=== PATIENT | female | born 2000 | race Two or more races ===

== ENCOUNTER 2022-01-02 08:20 | Inpatient (IN) ==
[2022-01-02] MEDS ORDERED: OXYTOCIN 30 UNITS/500 ML BAG IV PRN (08:27)
[2022-01-02] MEDS ORDERED: LIDOCAINE 1% LOCAL 20 ML VIAL INFIL PRN (08:27)
[2022-01-02] MEDS ORDERED: DINOPROSTONE 10 MG INSERT PV ONE (08:45)
[2022-01-02 09:09] LABS: Hematocrit (blood only) 34.3 % (34.1-44.9); Hemoglobin 11.2 g/dl (12.0-16.0); Mean Corpuscular Hemoglobin 28.6 pg (25.0-34.0); Mean Corpuscular Hgb Conc 32.7 g/dL (32.0-36.0); Mean Corpuscular Volume 87.7 fL (80.0-100.0); Mean Platelet Volume 10.2 fL (9.4-12.3); Platelet Count 305 K/uL (130-400); RDW Coefficient of Variation 12.8 % (11.5-14.5); RDW Standard Deviation 40.7 fL (36.4-46.3); Red Blood Count 3.91 M/uL (3.93-5.22); White Blood Count 6.16 K/ul (4.8-10.8)
--- NOTE | 2022-01-02 09:09 | History & Physical Report ---
Date of Service January 02, 2022 Assessment & Plan (1) Post-term , 40-42 weeks of gestation: Plan: Patient is a 21-year-old at 41 weeks and 3 days of gestation presenting today for induction of labor for postdates, Vital signs stable afebrile, heart rate reassuring, GBS negative, Cervix unfavorable, Plan to admit, monitor, labs, cervical ripening with Cervidil Understands all, what to expect from induction,labor All questions were answered. Admission and Anticipated Discharge Date Admission Date: January 02, 2022 History of Present Illness Primary Care Provider: NO PCP Patient is a 21-year-old at 41 weeks and 3 days of gestation who was scheduled for induction of labor for postdates. She is a transfer care in third trimester, from [facility], does not speak Syriac. Her has been doing translation for her. They took care in [facility] and then came to [facility] and then here, [place], in October No US found in her records other than normal FORREST and BPP, they were told to be all normal per patient and . Patient denies contractions, leakage of fluid, vaginal bleeding. She reports good movements. Her has been uncomplicated, GBS negative. Review of Systems as per Subjective / HPI Physical Exam Constitutional: well developed, well nourished and comfortable Pleasant Gastrointestinal (Abdomen): normal bowel sounds, soft, nontender, no hepatosplenomegaly (gravid) Genitourinary: normal external appearance OB Exam Abdomen: + vertex Manual OB Exam: + cervical dilation fingertip, + cervical effacement 30% and + station high OB Exam Monitor Tracing: + external uterine monitor used and + category I Bed side US: Vertex Results & Data ([facility]) Vital Signs (Past 12 Hours) Vital Signs Pulse BP 01/02/22 08:55 86 123/79 Laboratory Results Lab Results 01/02/22 Range/Units 08:48 WBC 6.16 (4.8-10.8) K/ul RBC 3.91 L (3.93-5.22) M/uL Hgb 11.2 L (12.0-16.0) g/dl Hct 34.3 (34.1-44.9) % MCV 87.7 (80.0-100.0) fL MCH 28.6 (25.0-34.0) pg MCHC 32.7 (32.0-36.0) g/dL RDW Std Deviation 40.7 (36.4-46.3) fL RDW Coeff of Sivakumar 12.8 (11.5-14.5) % Plt Count 305 (130-400) K/uL MPV 10.2 (9.4-12.3) fL
[2022-01-02] MEDS ORDERED: BUTORPHANOL TARTRATE 1 MG/ML VIAL IV PRN (09:50)
--- NOTE | 2022-01-02 16:31 | Obstetrical Progress Note ---
Date of Service January 02, 2022 Assessment & Plan Admission and Anticipated Discharge Date Admission Date: January 02, 2022 Subjective Patient is related. She feels well no complaints. She denies contractions, leakage of fluid, vaginal bleeding. She reports good movements. heart rate category 1, [place] showing regular contractions every 3 to 5 minutes. Continue with cervical ripening and monitoring, All questions were answered. Results & Data ([facility]) Vital Signs (Past 12 Hours) Vital Signs Temp Pulse Resp BP Pulse Ox 01/02/22 08:57 37.0 C 20 01/02/22 16:13 97 01/02/22 16:13 98 H 01/02/22 16:08 95 01/02/22 16:08 90 01/02/22 16:03 96 01/02/22 16:03 87 01/02/22 15:58 98 01/02/22 15:58 88 01/02/22 15:53 97 01/02/22 15:53 91 H 01/02/22 15:48 97 01/02/22 15:48 101 H 01/02/22 15:43 97 01/02/22 15:43 87 01/02/22 15:38 97 01/02/22 15:38 91 H 01/02/22 15:33 97 01/02/22 15:33 92 H 01/02/22 15:28 97 01/02/22 15:28 89 01/02/22 15:23 97 01/02/22 15:23 90 01/02/22 15:18 97 01/02/22 15:18 93 H 01/02/22 15:13 97 01/02/22 15:13 82 01/02/22 08:55 86 123/79
--- NOTE | 2022-01-02 21:56 | Obstetrical Progress Note ---
Date of Service January 02, 2022 Assessment & Plan Admission and Anticipated Discharge Date Admission Date: January 02, 2022 Subjective Patient is seen and examined. She feels mild irregular cramps, not painful. She denies contractions, leakage of fluid, vaginal bleeding. She reports good movements. Cervidil is removed, cervix is 1 to 2 cm, 30%, -3, posterior. She is very uncomfortable during exam. heart rate category 1 Contractions every 2 to 5 minutes, patient does not feel them all. We discussed the next option as oral Cytotec versus [place] balloon mechanical dilatation with IV oxytocin at same time. After long discussion she decided to take oral Cytotec just because she has hard time tolerating vaginal exams. Continue to monitor closely, Stadol for pain as needed, All questions were answered. Results & Data ([facility]) Vital Signs (Past 12 Hours) Vital Signs Temp Pulse Resp BP Pulse Ox 01/02/22 19:23 37.1 C 18 01/02/22 20:36 96 H 01/02/22 20:36 117/66 01/02/22 16:13 97 01/02/22 16:13 98 H 01/02/22 16:08 95 01/02/22 16:08 90 01/02/22 16:03 96 01/02/22 16:03 87 01/02/22 15:58 98 01/02/22 15:58 88 01/02/22 15:53 97 01/02/22 15:53 91 H 01/02/22 15:48 97 01/02/22 15:48 101 H 01/02/22 15:43 97 01/02/22 15:43 87 01/02/22 15:38 97 01/02/22 15:38 91 H 01/02/22 15:33 97 01/02/22 15:33 92 H 01/02/22 15:28 97 01/02/22 15:28 89 01/02/22 15:23 97 01/02/22 15:23 90 01/02/22 15:18 97 01/02/22 15:18 93 H 01/02/22 15:13 97 01/02/22 15:13 82
[2022-01-02] MEDS: LACTATED RINGER'S 1,000 ML IV PRN (22:00)
[2022-01-02] MEDS ORDERED: miSOPROStoL 50 MCG TAB ONE (22:34)
[2022-01-03] MEDS ORDERED: ONDANSETRON INJ 2 MG/ML 2 ML VIAL IV PRN ×2 (00:52→13:42)
[2022-01-03] MEDS ORDERED: miSOPROStoL 50 MCG TAB ONE (03:23)
--- NOTE | 2022-01-03 07:03 | Obstetrical Progress Note ---
Date of Service January 03, 2022 Assessment & Plan Admission and Anticipated Discharge Date Admission Date: January 02, 2022 Subjective Patient received 2 doses of Cytotec and slept through contractions. Just fekt a gush if fluid leaking. Pad is covered with green fluid, meconium+, Nitrazine + VE; cx 1-2 cm/ 30%/ -3 FHR categ I [place]: ctxs q2-3 earlier now spaced out Plan to start Oxytocin Continue to monitor Results & Data ([facility]) Vital Signs (Past 12 Hours) Vital Signs Temp Pulse Resp BP 01/02/22 19:23 37.1 C 18 01/03/22 06:59 18 01/03/22 06:59 37.0 C 18 01/03/22 03:26 18 01/03/22 03:26 18 01/03/22 03:25 125 H 119/60 01/02/22 20:36 96 H 01/02/22 20:36 117/66
[2022-01-03] MEDS ORDERED: OXYTOCIN 30 UNITS/500 ML BAG IV PRN ×3 (07:08→16:27)
[2022-01-03] MEDS: LACTATED RINGER'S 1,000 ML IV PRN ×3 (10:39→20:59)
[2022-01-03] MEDS ORDERED: NALOXONE HCL 1 MG in SODIUM CHLORIDE 0.9% 1000ML 1,000 ML IV PRN (13:42)
[2022-01-03] MEDS ORDERED: NALBUPHINE HCL INJ 10 MG/ML AMP IV PRN (13:42)
[2022-01-03] MEDS ORDERED: diphenhydrAMINE 50 MG/ML VIAL IV PRN (13:42)
[2022-01-03] MEDS ORDERED: NALOXONE HCL 0.4 MG/1 ML VIAL/CARP IV PRN (13:42)
[2022-01-03] MEDS ORDERED: ePHEDrine sulfate 50 MG/ML AMP IV PRN (13:42)
[2022-01-03] MEDS ORDERED: ePHEDrine sulfate 50 MG/ML AMP ONE (13:47)
[2022-01-03] MEDS ORDERED: LIDOCAINE 2%/EPINEPHRINE 1:200,000 20 ML SDV ONE (13:47)
[2022-01-03] MEDS ORDERED: SODIUM CHLORIDE 0.9% INJ 10 ML VIAL ONE (13:47)
[2022-01-03] MEDS ORDERED: BUPIVACAINE 0.25% 30 ML VIAL ONE (13:47)
[2022-01-03] MEDS ORDERED: fentaNYL citrate 100 MCG/2 ML VIAL ONE (13:47)
[2022-01-03] MEDS ORDERED: fentaNYL 2MCG/ML ROPIVACAINE 1.25MG/ML 100 ML BAG EPI ONE (13:48)
--- NOTE | 2022-01-03 13:48 | Anesthesiology Consultation ---
Date of Service January 03, 2022 Assessment & Plan Chart Review Chart Review: Patient NOT seen in Pre Admission Testing and Acceptable Risk for Labor Epidural Consults Requested none ASA ASA2 Proposed Anesthesia Anesthesia Type: Labor Epidural and CSE Risk / Benefits Reviewed With: PT / POA / Parent / Guardian, Accepts Plan and Informed Consent Obtained History Height/Weight Height: 5 ft 4 in Weight: 80.9 kg Allergies Allergy/AdvReac Type Severity Reaction Status Date / Time No Known Allergies Allergy Unverified 01/02/22 15:37 Medications Active Medications Generic Name Dose Route Start Last Admin Trade Name Freq PRN Reason Stop Dose Admin Butorphanol Tartrate 1 mg 01/02/22 09:50 01/03/22 10:34 Butorphanol Tartrate 1 Mg/Ml Vial IV 02/01/22 09:49 1 mg Q3HWA PRN Administration Pain Lactated Ringer's 1,000 mls @ 150 mls/hr 01/02/22 08:27 01/03/22 13:32 Lr IV 01/04/22 08:26 999 mls/hr .Q6H40M PRN Infusion L&D Protocol Protocol Oxytocin 30 units in 500 mls @ 18 mls/hr 01/03/22 07:08 01/03/22 12:40 Pitocin IV 01/05/22 07:07 1.08 units/hr .Q24H PRN 18 mls/hr Labor Induction/Augmentation Titration Protocol 1.08 UNITS/HR NPO Date Last Intake of Fluids: 01/03/22 Time Last Intake of Fluids: 13:00 Date Last Intake of Solids: 01/03/22 Time Last Intake of Solids: 12:30 Exercise / Class Metabolic Activity II 4-5 Yardwork/Stairs/Walk up hill Past Anesthesia History No Hx of Anesthesia Complications and No Family Hx of Anesthesia Complications History of PONV No Hx of PONV and No Hx of Motion Sickness Social History Smoking Status: Never smoker Hx Alcohol Use: No Hx Substance Use: No substance use type: does not use Review of Systems no chest pain or sob Physical Exam Vital Signs Last Vital Signs Temp 36.9 C 01/03/22 11:03 Pulse 80 01/03/22 12:47 Resp 18 01/03/22 11:03 BP 117/77 01/03/22 12:47 Pulse Ox 97 01/02/22 16:13 ENMT Mouth: no TMJ abnormality Thyromental Distance: > or= 3.5 Finger Breadths Mallampati Class: II Neck normal visual inspection Respiratory normal respiratory effort Auscultation: lungs clear to auscultation bilaterally Cardiovascular Rate/Rhythm: regular rate and regular rhythm Musculoskeletal Spine: normal cervical ROM Neurologic moves all extremities Psychiatric Orientation: alert and oriented x 3 Testing Laboratory Results 01/02/22 08:48
[2022-01-03] MEDS: fentaNYL 2MCG/ML ROPIVACAINE 1.25MG/ML 100 ML BAG EPI PRN ×2 (14:11→22:17)
[2022-01-03] MEDS: ACETAMINOPHEN 325 MG TAB PO PRN ×2 (18:47→23:20)
--- NOTE | 2022-01-03 19:37 | Labor Progress Brief Note ---
Date of Service January 03, 2022 Assessment & Plan Admission and Anticipated Discharge Date Admission Date: January 02, 2022 Physical Exam Genitourinary: Manual OB Exam: + cervical dilation 4 cm and 5 cm, + cervical effacement 90%, + station -2 and + amniotic fluid meconium OB Exam Monitor Tracing: + external FHT monitor used, + external uterine monitor used and + category I Results & Data ([facility]) Vital Signs (Past 12 Hours) Vital Signs Temp Pulse Resp BP Pulse Ox 01/03/22 19:31 88 99 01/03/22 19:26 86 98 01/03/22 19:21 97 H 98 01/03/22 19:22 91 H 112/64 01/03/22 19:16 94 H 98 01/03/22 19:11 92 H 98 01/03/22 19:08 98 H 116/60 01/03/22 19:06 103 H 98 01/03/22 19:01 101 H 99 01/03/22 18:56 85 100 01/03/22 18:53 93 H 115/72 01/03/22 18:51 87 98 01/03/22 18:46 91 H 97 01/03/22 18:41 112 H 98 01/03/22 18:37 87 106/55 L 01/03/22 18:36 91 H 99 01/03/22 18:31 85 98 01/03/22 18:26 94 H 98 01/03/22 18:21 93 H 99 01/03/22 18:22 96 H 102/57 L 01/03/22 18:16 85 97 01/03/22 18:11 84 98 01/03/22 18:08 73 107/56 L 01/03/22 18:06 86 97 01/03/22 18:01 96 H 97 01/03/22 17:56 85 98 01/03/22 17:51 102 H 98 01/03/22 17:52 93 H 107/61 01/03/22 17:46 86 98 01/03/22 17:41 94 H 96 01/03/22 17:37 78 107/62 01/03/22 17:36 37.0 C 87 15 98 01/03/22 17:31 85 98 01/03/22 17:26 88 97 01/03/22 17:21 81 96 01/03/22 17:22 83 110/61 01/03/22 17:16 75 96 01/03/22 17:11 79 95 01/03/22 17:06 85 96 01/03/22 17:07 85 106/59 L 01/03/22 17:01 93 H 96 01/03/22 16:56 80 95 01/03/22 16:52 86 105/56 L 01/03/22 16:51 80 97 01/03/22 16:46 94 01/03/22 16:46 85 01/03/22 16:46 86 93 01/03/22 16:41 81 97 01/03/22 16:37 75 120/70 01/03/22 16:36 77 98 01/03/22 16:31 78 98 01/03/22 16:29 15 01/03/22 16:29 37.3 C 15 01/03/22 16:26 76 96 01/03/22 16:22 74 107/55 L 01/03/22 16:21 73 96 01/03/22 16:16 80 97 01/03/22 16:11 89 97 01/03/22 16:08 71 103/56 L 01/03/22 16:06 117 H 98 01/03/22 16:01 88 97 01/03/22 15:56 82 97 01/03/22 15:51 88 97 01/03/22 15:50 83 109/58 L 01/03/22 15:46 77 95 01/03/22 15:45 70 113/56 L 01/03/22 15:41 95 01/03/22 15:41 78 01/03/22 15:41 71 106/57 L 01/03/22 15:36 73 108/54 L 95 01/03/22 15:33 72 94 01/03/22 15:31 95 01/03/22 15:31 73 01/03/22 15:31 75 108/56 L 01/03/22 15:26 95 01/03/22 15:26 77 01/03/22 15:26 73 94 01/03/22 15:25 68 110/57 L 01/03/22 15:21 71 106/58 L 94 01/03/22 15:20 72 94 01/03/22 15:16 94 01/03/22 15:16 80 01/03/22 15:16 73 108/54 L 01/03/22 15:14 73 94 01/03/22 15:11 75 94 01/03/22 15:10 74 102/58 L 01/03/22 15:06 77 94 01/03/22 15:07 80 94 01/03/22 15:05 77 103/56 L 01/03/22 15:01 85 106/58 L 94 01/03/22 14:59 71 94 01/03/22 14:56 76 93 01/03/22 14:55 75 15 105/57 L 01/03/22 14:53 73 94 01/03/22 14:51 79 106/58 L 95 01/03/22 14:48 76 94 01/03/22 14:46 72 95 01/03/22 14:45 76 108/60 01/03/22 14:43 77 94 01/03/22 14:41 73 95 01/03/22 14:40 75 111/62 01/03/22 14:36 84 96 01/03/22 14:35 82 106/56 L 01/03/22 14:31 77 95 01/03/22 14:29 78 105/58 L 01/03/22 14:27 94 H 110/59 L 01/03/22 14:26 84 96 01/03/22 14:25 77 109/58 L 01/03/22 14:23 71 116/64 01/03/22 14:21 80 116/57 L 96 01/03/22 14:20 14 01/03/22 14:20 36.9 C 14 01/03/22 14:19 83 107/57 L 01/03/22 14:17 89 120/74 01/03/22 14:16 83 97 01/03/22 14:15 76 120/64 01/03/22 14:13 79 119/58 L 01/03/22 14:11 77 113/58 L 97 01/03/22 14:10 83 127/62 01/03/22 14:06 82 98 01/03/22 14:01 74 100 01/03/22 13:56 89 100 01/03/22 13:48 75 128/75 01/03/22 12:47 80 117/77 01/03/22 11:47 67 115/62 01/03/22 11:03 36.9 C 74 18 113/61 01/03/22 09:48 69 111/62 01/03/22 08:59 20 01/03/22 08:59 36.8 C 20 01/03/22 07:47 83 121/69 01/03/22 07:45 90 120/69
[2022-01-03] MEDS ORDERED: NURSING L&D Epidural Breakthrough Pain Update ONE (20:58)
[2022-01-03] MEDS: miSOPROStoL 50 MCG TAB PO SCH ×3 (21:05→21:09)
[2022-01-03] MEDS ORDERED: miSOPROStoL 50 MCG TAB PO SCH (22:30)
--- NOTE | 2022-01-03 23:25 | Labor Progress Brief Note ---
Date of Service January 03, 2022 Assessment & Plan Admission and Anticipated Discharge Date Admission Date: January 02, 2022 Physical Exam Genitourinary: Manual OB Exam: + cervical dilation 9 cm, + cervical effacement 100% and + station 0 OB Exam Monitor Tracing: + external FHT monitor used, + external uterine monitor used, + category I and + normal FHT variability Results & Data ([facility]) Vital Signs (Past 12 Hours) Vital Signs Temp Pulse Resp BP Pulse Ox 01/03/22 21:17 36.8 C 16 01/03/22 19:15 37.1 C 18 01/03/22 23:21 102 H 100 01/03/22 23:16 18 01/03/22 23:16 38.3 C H 90 18 97 01/03/22 23:11 104 H 99 01/03/22 23:09 95 H 105/57 L 01/03/22 23:06 112 H 99 01/03/22 23:07 114 H 115/59 L 01/03/22 23:01 98 H 99 01/03/22 23:00 18 01/03/22 23:00 37.6 C H 18 01/03/22 22:56 91 H 99 01/03/22 22:53 105 H 92/54 L 01/03/22 22:51 98 H 99 01/03/22 22:46 86 99 01/03/22 22:41 91 H 100 01/03/22 22:38 88 106/55 L 01/03/22 22:36 101 H 100 01/03/22 22:31 91 H 100 01/03/22 22:26 89 100 01/03/22 22:23 85 111/58 L 01/03/22 22:21 129 H 99 01/03/22 22:20 116 H 88 L 01/03/22 22:16 107 H 100 01/03/22 22:11 99 H 99 01/03/22 22:06 89 99 01/03/22 22:07 94 H 114/69 01/03/22 22:01 96 H 100 01/03/22 21:56 88 99 01/03/22 21:52 90 113/65 01/03/22 21:51 83 98 01/03/22 21:46 87 97 01/03/22 21:41 89 98 01/03/22 21:37 89 109/64 01/03/22 21:36 89 98 01/03/22 21:31 88 98 01/03/22 21:26 89 98 01/03/22 21:23 88 110/66 01/03/22 21:21 88 99 01/03/22 21:16 92 H 99 01/03/22 21:11 104 H 99 01/03/22 21:07 98 H 125/70 01/03/22 21:06 86 97 01/03/22 21:01 98 H 97 01/03/22 20:56 91 H 96 01/03/22 20:52 96 H 115/60 01/03/22 20:51 93 H 96 01/03/22 20:46 89 98 01/03/22 20:41 86 97 01/03/22 20:38 93 H 114/55 L 01/03/22 20:36 91 H 96 01/03/22 20:31 91 H 97 01/03/22 20:26 89 95 01/03/22 20:21 97 H 98 01/03/22 20:22 93 H 117/61 01/03/22 20:16 107 H 96 01/03/22 20:11 136 H 97 01/03/22 20:07 81 105/56 L 01/03/22 20:06 86 98 01/03/22 20:01 85 97 01/03/22 19:56 81 97 01/03/22 19:51 79 98 01/03/22 19:52 78 108/58 L 01/03/22 19:46 79 99 01/03/22 19:41 75 98 01/03/22 19:39 75 106/59 L 01/03/22 19:36 93 H 97 01/03/22 19:31 88 99 01/03/22 19:26 86 98 01/03/22 19:21 97 H 98 01/03/22 19:22 91 H 112/64 01/03/22 19:16 94 H 98 01/03/22 19:11 92 H 98 01/03/22 19:08 98 H 116/60 01/03/22 19:06 103 H 98 01/03/22 19:01 101 H 99 01/03/22 18:56 85 100 01/03/22 18:53 93 H 115/72 01/03/22 18:51 87 98 01/03/22 18:46 91 H 97 01/03/22 18:41 112 H 98 01/03/22 18:37 87 106/55 L 01/03/22 18:36 91 H 99 01/03/22 18:31 85 98 01/03/22 18:26 94 H 98 01/03/22 18:21 93 H 99 01/03/22 18:22 96 H 102/57 L 01/03/22 18:16 85 97 01/03/22 18:11 84 98 01/03/22 18:08 73 107/56 L 01/03/22 18:06 86 97 01/03/22 18:01 96 H 97 01/03/22 17:56 85 98 01/03/22 17:51 102 H 98 01/03/22 17:52 93 H 107/61 01/03/22 17:46 86 98 01/03/22 17:41 94 H 96 01/03/22 17:37 78 107/62 01/03/22 17:36 37.0 C 87 15 98 01/03/22 17:31 85 98 01/03/22 17:26 88 97 01/03/22 17:21 81 96 01/03/22 17:22 83 110/61 01/03/22 17:16 75 96 01/03/22 17:11 79 95 01/03/22 17:06 85 96 01/03/22 17:07 85 106/59 L 01/03/22 17:01 93 H 96 01/03/22 16:56 80 95 01/03/22 16:52 86 105/56 L 01/03/22 16:51 80 97 01/03/22 16:46 94 01/03/22 16:46 85 01/03/22 16:46 86 93 01/03/22 16:41 81 97 01/03/22 16:37 75 120/70 01/03/22 16:36 77 98 01/03/22 16:31 78 98 01/03/22 16:29 15 01/03/22 16:29 37.3 C 15 01/03/22 16:26 76 96 01/03/22 16:22 74 107/55 L 01/03/22 16:21 73 96 01/03/22 16:16 80 97 01/03/22 16:11 89 97 01/03/22 16:08 71 103/56 L 01/03/22 16:06 117 H 98 01/03/22 16:01 88 97 01/03/22 15:56 82 97 01/03/22 15:51 88 97 01/03/22 15:50 83 109/58 L 01/03/22 15:46 77 95 01/03/22 15:45 70 113/56 L 01/03/22 15:41 95 01/03/22 15:41 78 01/03/22 15:41 71 106/57 L 01/03/22 15:36 73 108/54 L 95 01/03/22 15:33 72 94 01/03/22 15:31 95 01/03/22 15:31 73 01/03/22 15:31 75 108/56 L 01/03/22 15:26 95 01/03/22 15:26 77 01/03/22 15:26 73 94 01/03/22 15:25 68 110/57 L 01/03/22 15:21 71 106/58 L 94 01/03/22 15:20 72 94 01/03/22 15:16 94 01/03/22 15:16 80 01/03/22 15:16 73 108/54 L 01/03/22 15:14 73 94 01/03/22 15:11 75 94 01/03/22 15:10 74 102/58 L 01/03/22 15:06 77 94 01/03/22 15:07 80 94 01/03/22 15:05 77 103/56 L 01/03/22 15:01 85 106/58 L 94 01/03/22 14:59 71 94 01/03/22 14:56 76 93 01/03/22 14:55 75 15 105/57 L 01/03/22 14:53 73 94 01/03/22 14:51 79 106/58 L 95 01/03/22 14:48 76 94 01/03/22 14:46 72 95 01/03/22 14:45 76 108/60 01/03/22 14:43 77 94 01/03/22 14:41 73 95 01/03/22 14:40 75 111/62 01/03/22 14:36 84 96 01/03/22 14:35 82 106/56 L 01/03/22 14:31 77 95 01/03/22 14:29 78 105/58 L 01/03/22 14:27 94 H 110/59 L 01/03/22 14:26 84 96 01/03/22 14:25 77 109/58 L 01/03/22 14:23 71 116/64 01/03/22 14:21 80 116/57 L 96 01/03/22 14:20 14 01/03/22 14:20 36.9 C 14 01/03/22 14:19 83 107/57 L 01/03/22 14:17 89 120/74 01/03/22 14:16 83 97 01/03/22 14:15 76 120/64 01/03/22 14:13 79 119/58 L 01/03/22 14:11 77 113/58 L 97 01/03/22 14:10 83 127/62 01/03/22 14:06 82 98 01/03/22 14:01 74 100 01/03/22 13:56 89 100 01/03/22 13:48 75 128/75 01/03/22 12:47 80 117/77 01/03/22 11:47 67 115/62
[2022-01-04] MEDS: LACTATED RINGER'S 1,000 ML IV PRN (01:14)
[2022-01-04] MEDS: fentaNYL 2MCG/ML ROPIVACAINE 1.25MG/ML 100 ML BAG EPI PRN (03:31)
[2022-01-04] MEDS: ceFAZolin 2000MG 2,000 MG/15 ML SYR IV SCH ×3 (04:54→20:48)
--- NOTE | 2022-01-04 06:33 | Labor Progress Brief Note ---
Date of Service January 04, 2022 Assessment & Plan Admission and Anticipated Discharge Date Admission Date: January 02, 2022 Physical Exam Genitourinary: OB Exam Monitor Tracing: + external FHT monitor used, + external uterine monitor used, + category II and + normal FHT variability patient was offered but wants to continue to push despite several hours of pushing. Results & Data ([facility]) Vital Signs (Past 12 Hours) Vital Signs Temp Pulse Resp BP Pulse Ox 01/03/22 21:17 36.8 C 16 01/03/22 19:15 37.1 C 18 01/04/22 06:26 128 H 100 01/04/22 06:25 114 H 119/69 01/04/22 06:21 119 H 97 01/04/22 06:16 105 H 100 01/04/22 06:11 112 H 100 01/04/22 06:06 124 H 100 01/04/22 06:01 117 H 100 01/04/22 05:56 127 H 100 01/04/22 05:51 103 H 99 01/04/22 05:50 18 01/04/22 05:50 37.2 C 18 01/04/22 05:46 101 H 98 01/04/22 05:41 97 H 100 01/04/22 05:39 95 H 120/63 01/04/22 05:36 96 H 100 01/04/22 05:31 115 H 100 01/04/22 05:26 108 H 100 01/04/22 05:21 96 H 100 01/04/22 05:16 101 H 99 01/04/22 05:11 107 H 99 01/04/22 05:09 101 H 126/69 01/04/22 05:06 103 H 100 01/04/22 05:01 135 H 100 01/04/22 04:56 107 H 99 01/04/22 04:51 105 H 100 01/04/22 04:46 106 H 100 01/04/22 04:43 100 H 124/73 01/04/22 04:41 109 H 100 01/04/22 04:36 109 H 100 01/04/22 04:31 103 H 99 01/04/22 04:26 110 H 99 01/04/22 04:21 123 H 98 01/04/22 04:16 113 H 88 L 01/04/22 04:11 149 H 99 01/04/22 04:12 151 H 134/86 01/04/22 04:06 119 H 99 01/04/22 04:01 130 H 100 01/04/22 03:56 129 H 97 01/04/22 03:51 122 H 100 01/04/22 03:46 104 H 100 01/04/22 03:41 102 H 99 01/04/22 03:36 113 H 100 01/04/22 03:31 101 H 100 01/04/22 03:29 18 01/04/22 03:29 37.9 C H 18 01/04/22 03:26 116 H 100 01/04/22 03:21 138 H 100 01/04/22 03:16 136 H 99 01/04/22 03:11 151 H 99 01/04/22 03:06 154 H 100 01/04/22 03:01 146 H 98 01/04/22 02:56 150 H 98 01/04/22 02:51 137 H 97 01/04/22 02:46 122 H 96 01/04/22 02:41 122 H 98 01/04/22 02:39 39.4 C H 121 H 18 129/68 01/04/22 02:36 134 H 98 01/04/22 02:31 185 H 97 01/04/22 02:26 101 H 97 01/04/22 02:21 105 H 98 01/04/22 02:16 120 H 98 01/04/22 02:11 97 01/04/22 02:11 105 H 01/04/22 02:11 106 H 87 L 01/04/22 02:09 101 H 132/69 01/04/22 02:06 90 97 01/04/22 02:01 107 H 98 01/04/22 01:56 112 H 98 01/04/22 01:51 109 H 97 01/04/22 01:46 131 H 98 01/04/22 01:41 95 H 98 01/04/22 01:39 91 H 128/65 01/04/22 01:36 106 H 99 01/04/22 01:31 105 H 99 01/04/22 01:26 118 H 98 01/04/22 01:21 100 H 98 01/04/22 01:16 110 H 98 01/04/22 01:13 18 01/04/22 01:13 38.2 C H 18 01/04/22 01:11 98 01/04/22 01:11 118 H 01/04/22 01:11 106 H 108/59 L 01/04/22 01:06 116 H 98 01/04/22 01:01 98 H 95 01/04/22 00:56 94 H 95 01/04/22 00:51 98 H 95 01/04/22 00:46 99 H 96 01/04/22 00:41 97 H 95 01/04/22 00:40 102 H 110/59 L 01/04/22 00:36 96 H 96 01/04/22 00:31 94 H 96 01/04/22 00:26 95 H 97 01/04/22 00:21 105 H 97 01/04/22 00:18 18 01/04/22 00:18 37.6 C H 18 01/04/22 00:16 109 H 96 01/04/22 00:11 92 H 95 01/04/22 00:10 94 H 106/55 L 01/04/22 00:06 96 H 96 01/04/22 00:01 91 H 96 01/03/22 23:56 90 97 01/03/22 23:51 100 H 96 01/03/22 23:46 96 H 97 01/03/22 23:41 108 H 98 01/03/22 23:40 102 H 104/55 L 01/03/22 23:36 103 H 99 01/03/22 23:31 135 H 100 01/03/22 23:26 182 H 99 01/03/22 23:21 102 H 100 01/03/22 23:16 18 01/03/22 23:16 38.3 C H 90 18 97 01/03/22 23:11 104 H 99 01/03/22 23:09 95 H 105/57 L 01/03/22 23:06 112 H 99 01/03/22 23:07 114 H 115/59 L 01/03/22 23:01 98 H 99 01/03/22 23:00 18 01/03/22 23:00 37.6 C H 18 01/03/22 22:56 91 H 99 01/03/22 22:53 105 H 92/54 L 01/03/22 22:51 98 H 99 01/03/22 22:46 86 99 01/03/22 22:41 91 H 100 01/03/22 22:38 88 106/55 L 01/03/22 22:36 101 H 100 01/03/22 22:31 91 H 100 01/03/22 22:26 89 100 01/03/22 22:23 85 111/58 L 01/03/22 22:21 129 H 99 01/03/22 22:20 116 H 88 L 01/03/22 22:16 107 H 100 01/03/22 22:11 99 H 99 01/03/22 22:06 89 99 01/03/22 22:07 94 H 114/69 01/03/22 22:01 96 H 100 01/03/22 21:56 88 99 01/03/22 21:52 90 113/65 01/03/22 21:51 83 98 01/03/22 21:46 87 97 01/03/22 21:41 89 98 01/03/22 21:37 89 109/64 01/03/22 21:36 89 98 01/03/22 21:31 88 98 01/03/22 21:26 89 98 01/03/22 21:23 88 110/66 01/03/22 21:21 88 99 01/03/22 21:16 92 H 99 01/03/22 21:11 104 H 99 01/03/22 21:07 98 H 125/70 01/03/22 21:06 86 97 01/03/22 21:01 98 H 97 01/03/22 20:56 91 H 96 01/03/22 20:52 96 H 115/60 01/03/22 20:51 93 H 96 01/03/22 20:46 89 98 01/03/22 20:41 86 97 01/03/22 20:38 93 H 114/55 L 01/03/22 20:36 91 H 96 01/03/22 20:31 91 H 97 01/03/22 20:26 89 95 01/03/22 20:21 97 H 98 01/03/22 20:22 93 H 117/61 01/03/22 20:16 107 H 96 01/03/22 20:11 136 H 97 01/03/22 20:07 81 105/56 L 01/03/22 20:06 86 98 01/03/22 20:01 85 97 01/03/22 19:56 81 97 01/03/22 19:51 79 98 01/03/22 19:52 78 108/58 L 01/03/22 19:46 79 99 01/03/22 19:41 75 98 01/03/22 19:39 75 106/59 L 01/03/22 19:36 93 H 97 01/03/22 19:31 88 99 01/03/22 19:26 86 98 01/03/22 19:21 97 H 98 01/03/22 19:22 91 H 112/64 01/03/22 19:16 94 H 98 01/03/22 19:11 92 H 98 01/03/22 19:08 98 H 116/60 01/03/22 19:06 103 H 98 01/03/22 19:01 101 H 99 01/03/22 18:56 85 100 01/03/22 18:53 93 H 115/72 01/03/22 18:51 87 98 01/03/22 18:46 91 H 97 01/03/22 18:41 112 H 98 01/03/22 18:37 87 106/55 L 01/03/22 18:36 91 H 99
--- NOTE | 2022-01-04 07:59 | Obstetrical Progress Note ---
Date of Service January 04, 2022 Assessment & Plan Admission and Anticipated Discharge Date Admission Date: January 02, 2022 Subjective I got sign out from Dr Santos. She has been on IV Oxytocin since yesterday morning Feverx2, started on IV Cefazolin around 5 am Patient pushed on and off for 3 hours and rested. Started to push again at 07:20 with new nursing team. VE; head is at +2, caput succanadeum present, partially visible with pushing. FHR with tachycardia and early decels, now with late component. It improved with IVF hydration. Patient pushed for about an hour and now refusing to push. She is asking for Csection. Understands the risks of bleeding, infection, injury to surrounding organs, DVT/ PE, scarring, risks of future Csections. Signed an informed consent. All questions were answered. Results & Data ([facility]) Vital Signs (Past 12 Hours) Vital Signs Temp Pulse Resp BP Pulse Ox 01/03/22 21:17 36.8 C 16 01/04/22 07:51 106 H 100 01/04/22 07:46 109 H 100 01/04/22 07:41 107 H 100 01/04/22 07:39 111 H 161/68 H 01/04/22 07:38 124 H 85 L 01/04/22 07:36 148 H 99 01/04/22 07:31 118 H 74 L 01/04/22 07:26 133 H 100 01/04/22 07:21 174 H 99 01/04/22 07:16 120 H 100 01/04/22 07:11 119 H 100 01/04/22 07:06 112 H 99 01/04/22 07:07 115 H 117/68 01/04/22 07:01 113 H 100 01/04/22 06:56 105 H 99 01/04/22 06:51 105 H 100 01/04/22 06:46 136 H 100 01/04/22 06:41 121 H 98 01/04/22 06:36 117 H 100 01/04/22 06:31 132 H 100 01/04/22 06:26 128 H 100 01/04/22 06:25 114 H 119/69 01/04/22 06:21 119 H 97 01/04/22 06:16 105 H 100 01/04/22 06:11 112 H 100 01/04/22 06:06 124 H 100 01/04/22 06:01 117 H 100 01/04/22 05:56 127 H 100 01/04/22 05:51 103 H 99 01/04/22 05:50 18 01/04/22 05:50 37.2 C 18 01/04/22 05:46 101 H 98 01/04/22 05:41 97 H 100 01/04/22 05:39 95 H 120/63 01/04/22 05:36 96 H 100 01/04/22 05:31 115 H 100 01/04/22 05:26 108 H 100 01/04/22 05:21 96 H 100 01/04/22 05:16 101 H 99 01/04/22 05:11 107 H 99 01/04/22 05:09 101 H 126/69 01/04/22 05:06 103 H 100 01/04/22 05:01 135 H 100 01/04/22 04:56 107 H 99 01/04/22 04:51 105 H 100 01/04/22 04:46 106 H 100 01/04/22 04:43 100 H 124/73 01/04/22 04:41 109 H 100 01/04/22 04:36 109 H 100 01/04/22 04:31 103 H 99 01/04/22 04:26 110 H 99 01/04/22 04:21 123 H 98 01/04/22 04:16 113 H 88 L 01/04/22 04:11 149 H 99 01/04/22 04:12 151 H 134/86 01/04/22 04:06 119 H 99 01/04/22 04:01 130 H 100 01/04/22 03:56 129 H 97 01/04/22 03:51 122 H 100 01/04/22 03:46 104 H 100 01/04/22 03:41 102 H 99 01/04/22 03:36 113 H 100 01/04/22 03:31 101 H 100 01/04/22 03:29 18 01/04/22 03:29 37.9 C H 18 01/04/22 03:26 116 H 100 01/04/22 03:21 138 H 100 01/04/22 03:16 136 H 99 01/04/22 03:11 151 H 99 01/04/22 03:06 154 H 100 01/04/22 03:01 146 H 98 01/04/22 02:56 150 H 98 01/04/22 02:51 137 H 97 01/04/22 02:46 122 H 96 01/04/22 02:41 122 H 98 01/04/22 02:39 39.4 C H 121 H 18 129/68 01/04/22 02:36 134 H 98 01/04/22 02:31 185 H 97 01/04/22 02:26 101 H 97 01/04/22 02:21 105 H 98 01/04/22 02:16 120 H 98 01/04/22 02:11 97 01/04/22 02:11 105 H 01/04/22 02:11 106 H 87 L 01/04/22 02:09 101 H 132/69 01/04/22 02:06 90 97 01/04/22 02:01 107 H 98 01/04/22 01:56 112 H 98 01/04/22 01:51 109 H 97 01/04/22 01:46 131 H 98 01/04/22 01:41 95 H 98 01/04/22 01:39 91 H 128/65 01/04/22 01:36 106 H 99 01/04/22 01:31 105 H 99 01/04/22 01:26 118 H 98 01/04/22 01:21 100 H 98 01/04/22 01:16 110 H 98 01/04/22 01:13 18 01/04/22 01:13 38.2 C H 18 01/04/22 01:11 98 01/04/22 01:11 118 H 01/04/22 01:11 106 H 108/59 L 01/04/22 01:06 116 H 98 01/04/22 01:01 98 H 95 01/04/22 00:56 94 H 95 01/04/22 00:51 98 H 95 01/04/22 00:46 99 H 96 01/04/22 00:41 97 H 95 01/04/22 00:40 102 H 110/59 L 01/04/22 00:36 96 H 96 01/04/22 00:31 94 H 96 01/04/22 00:26 95 H 97 01/04/22 00:21 105 H 97 01/04/22 00:18 18 01/04/22 00:18 37.6 C H 18 01/04/22 00:16 109 H 96 01/04/22 00:11 92 H 95 01/04/22 00:10 94 H 106/55 L 01/04/22 00:06 96 H 96 01/04/22 00:01 91 H 96 01/03/22 23:56 90 97 01/03/22 23:51 100 H 96 01/03/22 23:46 96 H 97 01/03/22 23:41 108 H 98 01/03/22 23:40 102 H 104/55 L 01/03/22 23:36 103 H 99 01/03/22 23:31 135 H 100 01/03/22 23:26 182 H 99 01/03/22 23:21 102 H 100 01/03/22 23:16 18 01/03/22 23:16 38.3 C H 90 18 97 01/03/22 23:11 104 H 99 01/03/22 23:09 95 H 105/57 L 01/03/22 23:06 112 H 99 01/03/22 23:07 114 H 115/59 L 01/03/22 23:01 98 H 99 01/03/22 23:00 18 01/03/22 23:00 37.6 C H 18 01/03/22 22:56 91 H 99 01/03/22 22:53 105 H 92/54 L 01/03/22 22:51 98 H 99 01/03/22 22:46 86 99 01/03/22 22:41 91 H 100 01/03/22 22:38 88 106/55 L 01/03/22 22:36 101 H 100 01/03/22 22:31 91 H 100 01/03/22 22:26 89 100 01/03/22 22:23 85 111/58 L 01/03/22 22:21 129 H 99 01/03/22 22:20 116 H 88 L 01/03/22 22:16 107 H 100 01/03/22 22:11 99 H 99 01/03/22 22:06 89 99 01/03/22 22:07 94 H 114/69 01/03/22 22:01 96 H 100 01/03/22 21:56 88 99 01/03/22 21:52 90 113/65 01/03/22 21:51 83 98 01/03/22 21:46 87 97 01/03/22 21:41 89 98 01/03/22 21:37 89 109/64 01/03/22 21:36 89 98 01/03/22 21:31 88 98 01/03/22 21:26 89 98 01/03/22 21:23 88 110/66 01/03/22 21:21 88 99 01/03/22 21:16 92 H 99 01/03/22 21:11 104 H 99 01/03/22 21:07 98 H 125/70 01/03/22 21:06 86 97 01/03/22 21:01 98 H 97 01/03/22 20:56 91 H 96 01/03/22 20:52 96 H 115/60 01/03/22 20:51 93 H 96 01/03/22 20:46 89 98 01/03/22 20:41 86 97 01/03/22 20:38 93 H 114/55 L 01/03/22 20:36 91 H 96 01/03/22 20:31 91 H 97 01/03/22 20:26 89 95 01/03/22 20:21 97 H 98 01/03/22 20:22 93 H 117/61 01/03/22 20:16 107 H 96 01/03/22 20:11 136 H 97 01/03/22 20:07 81 105/56 L 01/03/22 20:06 86 98 01/03/22 20:01 85 97
[2022-01-04] MEDS ORDERED: LACTATED RINGER'S 1,000 ML IV SCH ×3 (08:45→10:45)
[2022-01-04] MEDS ORDERED: CITRIC ACID/SODIUM CITRATE 15 ML UDC PO SCH (09:00)
[2022-01-04] MEDS ORDERED: ceFAZolin 2000MG 2,000 MG/15 ML SYR IV SCH (09:00)
[2022-01-04 09:04] LABS: Basophils # (auto) 0.03 K/uL (0-0.2); Basophils % (auto) 0.2 %; Hematocrit (blood only) 33.6 % (34.1-44.9); Hemoglobin 11.4 g/dl (12.0-16.0); Immature Granulocytes # (auto) 0.09 K/uL (0.00-0.02); Immature Granulocytes % (auto) 0.6 %; Lymphocytes # (auto) 0.96 K/uL (1.2-3.4); Lymphocytes % (auto) 6.6 %; Mean Corpuscular Hemoglobin 28.8 pg (25.0-34.0); Mean Corpuscular Hgb Conc 33.9 g/dL (32.0-36.0); Mean Corpuscular Volume 84.8 fL (80.0-100.0); Monocytes # (auto) 0.94 K/uL (0.24-0.82); Monocytes % (auto) 6.5 %; Neutrophils # (auto) 12.49 K/uL (1.4-6.5); Neutrophils % (auto) 86.1 %; Platelet Count 298 K/uL (130-400); RDW Standard Deviation 40.3 fL (36.4-46.3); Red Blood Count 3.96 M/uL (3.93-5.22); White Blood Count 14.51 K/ul (4.8-10.8)
[2022-01-04] MEDS ORDERED: MoRPHine SULFATE PF 1 MG/ML 10 ML AMP/VIAL ONE (09:13)
[2022-01-04 09:24] LABS: Albumin Globulin Ratio 1.1 (0.9-2); BUN Creatinine Ratio 10.8 (10-20); Bilirubin,Total 1.5 mg/dl (0.2-1.0); Calcium 8.9 mg/dl (8.5-10.1); Creatinine Clr Calc Pharmacy 112.2 ml/min; Est GFR (African American) 118.5 ml/min; Est GFR (Non-African American) 102.2 ml/min; Globulin 2.8 gm/dl (2.5-4.0); Potassium 3.9 mmol/L (3.5-5.1); Total Protein 5.8 gm/dl (6.0-8.3)
[2022-01-04] MEDS ORDERED: ONDANSETRON INJ 2 MG/ML 2 ML VIAL ONE (10:26)
[2022-01-04] MEDS ORDERED: PHENYLEPHRINE 100MCG/ML 5ML SYR ONE (10:26)
[2022-01-04] MEDS ORDERED: KETOROLAC 30 MG/ML VIAL ONE (10:26)
[2022-01-04] MEDS ORDERED: OXYTOCIN 10 UNITS/ML VIAL ONE (10:26)
[2022-01-04] MEDS ORDERED: SENNA 8.6 MG TAB PO PRN (10:36)
[2022-01-04] MEDS ORDERED: PROMETHAZINE HCL 25 MG in SODIUM CHLORIDE 0.9% 50 ML IV PRN (10:36)
[2022-01-04] MEDS ORDERED: DIPHTHERIA/TETANUS/PERTUSSIS 0.5 ML SYR/VIAL IM ONE (10:36)
[2022-01-04] MEDS ORDERED: diphenhydrAMINE 50 MG/ML VIAL IV PRN ×2 (10:36→15:00)
[2022-01-04] MEDS ORDERED: HYDROCORTISONE ACETATE 25 MG SUPP PR PRN (10:36)
[2022-01-04] MEDS ORDERED: MEPERIDINE HCL 50 MG/ML CARP IV PRN (10:36)
[2022-01-04] MEDS ORDERED: MEASLES, MUMPS & RUBELLA VIRUS VIAL SQ ONE (10:36)
[2022-01-04] MEDS ORDERED: MAGNESIUM HYDROXIDE SUSP 30 ML UDC PO PRN (10:36)
[2022-01-04] MEDS ORDERED: ONDANSETRON INJ 2 MG/ML 2 ML VIAL IV PRN ×2 (10:36→15:00)
[2022-01-04] MEDS ORDERED: BENZOCAINE 20% AER SPR 82.5 GM CAN EXT PRN (10:36)
[2022-01-04] MEDS ORDERED: diphenhydrAMINE Capsule 25 MG CAP PO PRN (10:36)
[2022-01-04] MEDS ORDERED: OXYTOCIN 20 UNITS in D5W AND LACTATED RINGERS 1,000 ML IV SCH (10:45)
--- NOTE | 2022-01-04 10:45 | Post Operative Brief Note ---
Immediate Post Op Note v1 Date of Surgery January 04, 2022 Pre & Post Diagnosis Operation Date: 01/04/22 09:00 <No data on this case meets the specified criteria> I identified the patient and participated in the time-out.: Yes Procedure Operation Date: 01/04/22 09:00 Actual Procedures p Section in LD with live female child at 0939 - Shama Monterroso MD Surgeon Shama Monterroso MD Rock Room Worker KYLER Friedman Estimated Blood Loss 700 Findings Consistent with Post-Op Diagnosis Drains Queen Catheter (placed in patient room) Anesthesia Type Spinal Complications none
--- NOTE | 2022-01-04 11:45 | Operative Report (OR) ---
DATE OF SURGERY: 01/04/2022. PREOPERATIVE DIAGNOSES: The patient is a 21-year-old G1, P0 at 41 weeks and 2 days of gestation, admitted for induction of labor on 01/02/2022, protracted labor, arrest of descent in second stage of labor, meconium-stained amniotic fluid, category 2 strip. POSTOPERATIVE DIAGNOSES: The patient is a 21-year-old G1, P0 at 41 weeks and 2 days of gestation, admitted for induction of labor on 01/02/2022, protracted labor, arrest of descent in second stage of labor, meconium-stained amniotic fluid, category 2 strip. PROCEDURE: Primary low transverse with Pfannenstiel skin incision. SURGEON: Shmaa Monterroso MD. REMELT FURNACE EXPEDITER: KYLER Friedman. ESTIMATED BLOOD LOSS: 700. DRAINS: Queen catheter drained 175 mL of urine. ANESTHESIA: Spinal. ANESTHESIOLOGIST: Dr. Quinn. COMPLICATIONS: None. FINDINGS: Baby was a viable female delivered in cephalic presentation at 09:39 a.m. Apgars were 8/8. Weight is 4094 grams. Maternal findings: Normal uterus, fallopian tubes, and ovaries. DESCRIPTION OF PROCEDURE: The patient is a 21-year-old G1, P0 at 41 weeks and 4 days of gestation, who has been admitted since 01/02/2022 for induction of labor for postdates. She received cervical ripening with Cervidil and p.o. Cytotec. She had SROM 01/03/2022 at 6:30 a.m. it was meconium stained. She was then started on IV oxytocin. She had protracted labor with slow change. She pushed about 3 hours between 1-4 a.m. and then she rested for passive descent/ labor down. She started pushing again at 7:20 a.m. this morning, pushed over an hour and unable to bring the baby down more than +2 station. The head had caput succedaneum and heart rate was in between category 1 to category 2 with tachycardia. She also had a fever during labor and started on IV antibiotics for intra-amniotic infection. After discussion, the patient refused to push longer and desired for a . She has signed an informed consent. She was taken to the operating room where spinal anesthesia was given without difficulty. She was placed in supine position with a leftward tilt. She was prepared and draped in the usual sterile fashion. A Pfannenstiel skin incision was made and carried through to the underlying layer of fascia with the Bovie. Fascia was incised in the midline and incision was extended laterally with the help of Doshi scissors and the rectus fascia was grasped with Jaron clamps and dissected off from the rectus muscles sharply with Doshi scissors. Rectus muscles were in the midline and the peritoneum was entered bluntly. Peritoneal incision was extended superiorly and inferiorly with good visualization of the bladder. Bladder blade was inserted. Vesicouterine peritoneum was identified, grasped with pickups, and entered sharply with Metzenbaum scissors. Bladder blade was created digitally and bladder blade was reinserted. Lower uterine segment was incised in transverse fashion. Incision was extended laterally with Doshi scissors. Membranes were ruptured and meconium stained fluid was obtained and the head was low in the pelvis. It was brought up to the incision and delivered without difficulty. Shoulders were delivered with minimal traction and mouth and nose were suctioned. Cord was clamped x2 and cut and baby was handed off to the waiting pediatric team with Dr. Prasad. Cord blood was obtained and then placenta was delivered manually as intact and complete. Uterus was exteriorized and cleared of all clots and debris. Uterine incision was repaired with 0 Vicryl in a running locked fashion and a second imbricating layer was placed with another 0 Vicryl in a running locked fashion. There were some oozing spots in the middle. Those were repaired with [id number] stitches and excellent hemostasis was achieved. Cul-de-sac was irrigated with warm normal saline and suctioned. Normal fallopian tubes, ovaries and the uterine serosa was seen. Uterus was returned to the patient's abdomen. Pelvis was irrigated with warm normal saline and suctioned. Incision was checked to be again hemostatic. Parietal peritoneum was reapproximated with 3-0 Vicryl in a running fashion and Continued with the same suture on the rectus muscles. Those were reapproximated in a continuous fashion and then rectus fascia and the muscles were checked to be hemostatic. Rectus fascia was reapproximated with 0 Vicryl in a running fashion. Subcuticular fat tissue was brought together with 3-0 Vicryl in a running fashion and the skin was closed with 4-0 Monocryl in a subcuticular fashion. The patient tolerated the procedure well. She has received cefazolin and clindamycin before surgery. The Sponge, needle, and instrument count was correct x3. No complications happened. I was present during whole procedure. At the end of procedure, the patient was cleaned, dried, and she was taken to recovery room in stable condition. . Job ID: [id number] [facility]
[2022-01-04] MEDS ORDERED: GELATIN SPONGE SZ 100 EXT ONE (13:15)
[2022-01-04] MEDS: METHYLERGONOVINE MALEATE 0.2 MG TAB PO SCH ×3 (13:26→20:47)
[2022-01-04] MEDS: SIMETHICONE 80 MG CHEW PO SCH ×3 (13:45→20:47)
[2022-01-04] MEDS ORDERED: NALBUPHINE HCL INJ 10 MG/ML AMP IV PRN (15:00)
[2022-01-04] MEDS ORDERED: MEPERIDINE HCL 25 MG/ML CARP/VIAL IV PRN (15:00)
[2022-01-04] MEDS ORDERED: SODIUM CHLORIDE 0.9% 1000ML 1,000 ML IV SCH (15:00)
[2022-01-04] MEDS ORDERED: MoRPHine SULFATE 2 MG/ML CARP IV PRN (15:00)
[2022-01-04] MEDS ORDERED: PROMETHAZINE HCL 6.25 MG in SODIUM CHLORIDE 0.9% 50 ML IV PRN (15:00)
[2022-01-04] MEDS ORDERED: NO NARCOTICS OR SEDATIVES SCH (15:00)
[2022-01-04] MEDS ORDERED: DC INTRASPINAL MORPHINE SCH (15:00)
[2022-01-04] MEDS ORDERED: MoRPHine SULFATE PF 1 MG/ML 10 ML AMP/VIAL INT SPINAL ONE (15:00)
[2022-01-04] MEDS ORDERED: NALOXONE HCL 0.08 MG in SYRINGE 1.8 ML IV PRN (15:00)
[2022-01-04] MEDS ORDERED: LACTATED RINGER'S 500 ML IV PRN (15:00)
[2022-01-04] MEDS ORDERED: ePHEDrine sulfate 50 MG/ML AMP IV PRN (15:00)
[2022-01-04] MEDS ORDERED: NALOXONE HCL 0.4 MG/1 ML VIAL/CARP IV PRN (15:00)
[2022-01-04] MEDS ORDERED: NALOXONE HCL 1 MG in SODIUM CHLORIDE 0.9% 1000ML 1,000 ML IV PRN (15:00)
[2022-01-04] MEDS ORDERED: HYDROmorphone INJ 0.5 MG/0.5 ML SYR IV PRN (15:00)
[2022-01-04] MEDS: CLINDAMYCIN/D5W 900 MG/50 ML BAG IV SCH ×3 (15:03→22:18)
--- NOTE | 2022-01-04 16:38 | Anesthesia Procedure Note ---
Date of Service January 04, 2022 Anesthesia Post Epidural Note Vital Signs Vital Signs: Temp Pulse Resp BP Pulse Ox O2 Del Method 37.2 C 94 H 16 119/69 96 01/04/22 13:45 01/04/22 13:45 01/04/22 15:40 01/04/22 13:45 01/04/22 15:40 01/04/22 13:45 Pain Intensity Perineal: Pain Intensity: 7 Notes Mental Status: alert / awake / arousable Nausea / Vomiting: adequately controlled Pain: adequately controlled Airway Patency, RR, SpO2: stable & adequate BP & HR: stable & adequate Hydration State: stable & adequate Neuraxial Anesthesia: was administered and sensory block is resolving Anesthetic Complications: no major complications apparent and Pt Satisfied with anesthetic care Epidural: Removed without complications and With tip intact
--- NOTE | 2022-01-04 16:38 | Anesthesiology Progress Note ---
Date of Service January 04, 2022 Anesthesia Post Procedure Vital Signs Vital Signs: Temp Pulse Pulse Resp BP BP Pulse Ox 01/04/22 15:40 16 96 01/04/22 13:45 37.2 C 94 H 16 119/69 96 01/04/22 14:36 16 97 01/04/22 13:45 16 96 01/04/22 12:15 20 01/04/22 11:45 20 01/04/22 11:45 18 01/04/22 11:35 20 01/04/22 11:25 18 01/04/22 11:15 18 01/04/22 11:05 18 01/04/22 10:55 37.3 C 20 01/03/22 21:17 36.8 C 16 01/03/22 19:15 37.1 C 18 01/04/22 13:16 101 H 96 01/04/22 13:11 97 H 95 01/04/22 13:09 88 123/77 01/04/22 13:06 90 96 01/04/22 13:01 95 H 96 01/04/22 12:59 97 H 124/73 01/04/22 12:56 96 H 96 01/04/22 12:51 91 H 95 01/04/22 12:49 91 H 118/69 01/04/22 12:46 83 96 01/04/22 12:41 83 98 01/04/22 12:40 84 119/78 01/04/22 12:36 80 96 01/04/22 12:31 90 93 01/04/22 12:29 85 121/78 01/04/22 12:26 90 96 01/04/22 12:21 96 H 95 01/04/22 12:19 79 114/73 01/04/22 12:16 93 H 96 01/04/22 12:11 87 97 01/04/22 12:09 85 125/72 01/04/22 12:06 83 96 01/04/22 12:01 82 95 01/04/22 11:59 82 119/72 01/04/22 11:56 86 95 01/04/22 11:51 79 94 01/04/22 11:49 75 126/74 01/04/22 11:46 79 94 01/04/22 11:41 80 95 01/04/22 11:39 75 126/79 01/04/22 11:36 79 94 01/04/22 11:31 78 94 01/04/22 11:29 76 127/81 01/04/22 11:26 78 96 01/04/22 11:21 74 94 01/04/22 11:19 72 124/81 01/04/22 11:16 75 93 01/04/22 11:11 76 94 01/04/22 11:09 73 130/81 01/04/22 11:06 80 97 01/04/22 11:01 78 95 01/04/22 10:59 82 131/79 01/04/22 10:56 78 98 01/04/22 10:51 99 01/04/22 10:51 78 01/04/22 10:51 77 118/56 L 01/04/22 10:46 81 99 01/04/22 10:41 97 01/04/22 10:41 87 01/04/22 10:41 83 109/58 L 01/04/22 07:08 20 01/04/22 07:08 38.7 C H 20 01/04/22 09:13 120 H 97 01/04/22 09:08 91 01/04/22 09:08 136 H 01/04/22 09:08 141 H 89 L 01/04/22 09:03 118 H 96 01/04/22 08:58 145 H 94 01/04/22 08:53 138 H 96 01/04/22 08:48 130 H 98 01/04/22 08:44 114 H 87 L 01/04/22 08:41 141 H 95 01/04/22 08:36 115 H 98 01/04/22 08:31 121 H 99 01/04/22 08:26 136 H 99 01/04/22 08:21 118 H 98 01/04/22 08:16 119 H 96 01/04/22 08:11 168 H 99 01/04/22 08:10 89 137/80 01/04/22 08:06 112 H 100 01/04/22 08:07 111 H 79 L 01/04/22 08:01 104 H 100 01/04/22 07:56 159 H 99 01/04/22 07:51 106 H 100 01/04/22 07:46 109 H 100 01/04/22 07:41 107 H 100 01/04/22 07:39 111 H 161/68 H 01/04/22 07:38 124 H 85 L 01/04/22 07:36 148 H 99 01/04/22 07:31 118 H 74 L 01/04/22 07:26 133 H 100 01/04/22 07:21 174 H 99 01/04/22 07:16 120 H 100 01/04/22 07:11 119 H 100 01/04/22 07:06 112 H 99 01/04/22 07:07 115 H 117/68 01/04/22 07:01 113 H 100 01/04/22 06:56 105 H 99 01/04/22 06:51 105 H 100 01/04/22 06:46 136 H 100 01/04/22 06:41 121 H 98 01/04/22 06:36 117 H 100 01/04/22 06:31 132 H 100 01/04/22 06:26 128 H 100 01/04/22 06:25 114 H 119/69 01/04/22 06:21 119 H 97 01/04/22 06:16 105 H 100 01/04/22 06:11 112 H 100 01/04/22 06:06 124 H 100 01/04/22 06:01 117 H 100 01/04/22 05:56 127 H 100 01/04/22 05:51 103 H 99 01/04/22 05:50 18 01/04/22 05:50 37.2 C 18 01/04/22 05:46 101 H 98 01/04/22 05:41 97 H 100 01/04/22 05:39 95 H 120/63 01/04/22 05:36 96 H 100 01/04/22 05:31 115 H 100 01/04/22 05:26 108 H 100 01/04/22 05:21 96 H 100 01/04/22 05:16 101 H 99 01/04/22 05:11 107 H 99 01/04/22 05:09 101 H 126/69 01/04/22 05:06 103 H 100 01/04/22 05:01 135 H 100 01/04/22 04:56 107 H 99 01/04/22 04:51 105 H 100 01/04/22 04:46 106 H 100 01/04/22 04:43 100 H 124/73 01/04/22 04:41 109 H 100 01/04/22 04:36 109 H 100 01/04/22 04:31 103 H 99 01/04/22 04:26 110 H 99 01/04/22 04:21 123 H 98 01/04/22 04:16 113 H 88 L 01/04/22 04:11 149 H 99 01/04/22 04:12 151 H 134/86 01/04/22 04:06 119 H 99 01/04/22 04:01 130 H 100 01/04/22 03:56 129 H 97 01/04/22 03:51 122 H 100 01/04/22 03:46 104 H 100 01/04/22 03:41 102 H 99 01/04/22 03:36 113 H 100 01/04/22 03:31 101 H 100 01/04/22 03:29 18 01/04/22 03:29 37.9 C H 18 01/04/22 03:26 116 H 100 01/04/22 03:21 138 H 100 01/04/22 03:16 136 H 99 01/04/22 03:11 151 H 99 01/04/22 03:06 154 H 100 01/04/22 03:01 146 H 98 01/04/22 02:56 150 H 98 01/04/22 02:51 137 H 97 01/04/22 02:46 122 H 96 01/04/22 02:41 122 H 98 01/04/22 02:39 39.4 C H 121 H 18 129/68 01/04/22 02:36 134 H 98 01/04/22 02:31 185 H 97 01/04/22 02:26 101 H 97 01/04/22 02:21 105 H 98 01/04/22 02:16 120 H 98 01/04/22 02:11 97 01/04/22 02:11 105 H 01/04/22 02:11 106 H 87 L 01/04/22 02:09 101 H 132/69 01/04/22 02:06 90 97 01/04/22 02:01 107 H 98 01/04/22 01:56 112 H 98 01/04/22 01:51 109 H 97 01/04/22 01:46 131 H 98 01/04/22 01:41 95 H 98 01/04/22 01:39 91 H 128/65 01/04/22 01:36 106 H 99 01/04/22 01:31 105 H 99 01/04/22 01:26 118 H 98 01/04/22 01:21 100 H 98 01/04/22 01:16 110 H 98 01/04/22 01:13 18 01/04/22 01:13 38.2 C H 18 01/04/22 01:11 98 01/04/22 01:11 118 H 01/04/22 01:11 106 H 108/59 L 01/04/22 01:06 116 H 98 01/04/22 01:01 98 H 95 01/04/22 00:56 94 H 95 01/04/22 00:51 98 H 95 01/04/22 00:46 99 H 96 01/04/22 00:41 97 H 95 01/04/22 00:40 102 H 110/59 L 01/04/22 00:36 96 H 96 01/04/22 00:31 94 H 96 01/04/22 00:26 95 H 97 01/04/22 00:21 105 H 97 01/04/22 00:18 18 01/04/22 00:18 37.6 C H 18 01/04/22 00:16 109 H 96 01/04/22 00:11 92 H 95 01/04/22 00:10 94 H 106/55 L 01/04/22 00:06 96 H 96 01/04/22 00:01 91 H 96 01/03/22 23:56 90 97 01/03/22 23:51 100 H 96 01/03/22 23:46 96 H 97 01/03/22 23:41 108 H 98 01/03/22 23:40 102 H 104/55 L 01/03/22 23:36 103 H 99 01/03/22 23:31 135 H 100 01/03/22 23:26 182 H 99 01/03/22 23:21 102 H 100 01/03/22 23:16 18 01/03/22 23:16 38.3 C H 90 18 97 01/03/22 23:11 104 H 99 01/03/22 23:09 95 H 105/57 L 01/03/22 23:06 112 H 99 01/03/22 23:07 114 H 115/59 L 01/03/22 23:01 98 H 99 01/03/22 23:00 18 01/03/22 23:00 37.6 C H 18 01/03/22 22:56 91 H 99 01/03/22 22:53 105 H 92/54 L 01/03/22 22:51 98 H 99 01/03/22 22:46 86 99 01/03/22 22:41 91 H 100 01/03/22 22:38 88 106/55 L 01/03/22 22:36 101 H 100 01/03/22 22:31 91 H 100 01/03/22 22:26 89 100 01/03/22 22:23 85 111/58 L 01/03/22 22:21 129 H 99 01/03/22 22:20 116 H 88 L 01/03/22 22:16 107 H 100 01/03/22 22:11 99 H 99 01/03/22 22:06 89 99 01/03/22 22:07 94 H 114/69 01/03/22 22:01 96 H 100 01/03/22 21:56 88 99 01/03/22 21:52 90 113/65 01/03/22 21:51 83 98 01/03/22 21:46 87 97 01/03/22 21:41 89 98 01/03/22 21:37 89 109/64 01/03/22 21:36 89 98 01/03/22 21:31 88 98 01/03/22 21:26 89 98 01/03/22 21:23 88 110/66 01/03/22 21:21 88 99 01/03/22 21:16 92 H 99 01/03/22 21:11 104 H 99 01/03/22 21:07 98 H 125/70 01/03/22 21:06 86 97 01/03/22 21:01 98 H 97 01/03/22 20:56 91 H 96 01/03/22 20:52 96 H 115/60 01/03/22 20:51 93 H 96 01/03/22 20:46 89 98 01/03/22 20:41 86 97 01/03/22 20:38 93 H 114/55 L 01/03/22 20:36 91 H 96 01/03/22 20:31 91 H 97 01/03/22 20:26 89 95 01/03/22 20:21 97 H 98 01/03/22 20:22 93 H 117/61 01/03/22 20:16 107 H 96 01/03/22 20:11 136 H 97 01/03/22 20:07 81 105/56 L 01/03/22 20:06 86 98 01/03/22 20:01 85 97 01/03/22 19:56 81 97 01/03/22 19:51 79 98 01/03/22 19:52 78 108/58 L 01/03/22 19:46 79 99 01/03/22 19:41 75 98 01/03/22 19:39 75 106/59 L 01/03/22 19:36 93 H 97 01/03/22 19:31 88 99 01/03/22 19:26 86 98 01/03/22 19:21 97 H 98 01/03/22 19:22 91 H 112/64 01/03/22 19:16 94 H 98 01/03/22 19:11 92 H 98 01/03/22 19:08 98 H 116/60 01/03/22 19:06 103 H 98 01/03/22 19:01 101 H 99 01/03/22 18:56 85 100 01/03/22 18:53 93 H 115/72 01/03/22 18:51 87 98 01/03/22 18:46 91 H 97 01/03/22 18:41 112 H 98 01/03/22 18:37 87 106/55 L 01/03/22 18:36 91 H 99 01/03/22 18:31 85 98 01/03/22 18:26 94 H 98 01/03/22 18:21 93 H 99 01/03/22 18:22 96 H 102/57 L 01/03/22 18:16 85 97 01/03/22 18:11 84 98 01/03/22 18:08 73 107/56 L 01/03/22 18:06 86 97 01/03/22 18:01 96 H 97 01/03/22 17:56 85 98 01/03/22 17:51 102 H 98 01/03/22 17:52 93 H 107/61 01/03/22 17:46 86 98 01/03/22 17:41 94 H 96 01/03/22 17:37 78 107/62 01/03/22 17:36 37.0 C 87 15 98 01/03/22 17:31 85 98 01/03/22 17:26 88 97 01/03/22 17:21 81 96 01/03/22 17:22 83 110/61 01/03/22 17:16 75 96 01/03/22 17:11 79 95 01/03/22 17:06 85 96 01/03/22 17:07 85 106/59 L 01/03/22 17:01 93 H 96 01/03/22 16:56 80 95 01/03/22 16:52 86 105/56 L 01/03/22 16:51 80 97 01/03/22 16:46 94 01/03/22 16:46 85 01/03/22 16:46 86 93 01/03/22 16:41 81 97 O2 Del Method 01/04/22 15:40 01/04/22 13:45 Room Air 01/04/22 14:36 01/04/22 13:45 01/04/22 12:15 01/04/22 11:45 01/04/22 11:45 01/04/22 11:35 01/04/22 11:25 01/04/22 11:15 01/04/22 11:05 01/04/22 10:55 01/03/22 21:17 01/03/22 19:15 01/04/22 13:16 01/04/22 13:11 01/04/22 13:09 01/04/22 13:06 01/04/22 13:01 01/04/22 12:59 01/04/22 12:56 01/04/22 12:51 01/04/22 12:49 01/04/22 12:46 01/04/22 12:41 01/04/22 12:40 01/04/22 12:36 01/04/22 12:31 01/04/22 12:29 01/04/22 12:26 01/04/22 12:21 01/04/22 12:19 01/04/22 12:16 01/04/22 12:11 01/04/22 12:09 01/04/22 12:06 01/04/22 12:01 01/04/22 11:59 01/04/22 11:56 01/04/22 11:51 01/04/22 11:49 01/04/22 11:46 01/04/22 11:41 01/04/22 11:39 01/04/22 11:36 01/04/22 11:31 01/04/22 11:29 01/04/22 11:26 01/04/22 11:21 01/04/22 11:19 01/04/22 11:16 01/04/22 11:11 01/04/22 11:09 01/04/22 11:06 01/04/22 11:01 01/04/22 10:59 01/04/22 10:56 01/04/22 10:51 01/04/22 10:51 01/04/22 10:51 01/04/22 10:46 01/04/22 10:41 01/04/22 10:41 01/04/22 10:41 01/04/22 07:08 01/04/22 07:08 01/04/22 09:13 01/04/22 09:08 01/04/22 09:08 01/04/22 09:08 01/04/22 09:03 01/04/22 08:58 01/04/22 08:53 01/04/22 08:48 01/04/22 08:44 01/04/22 08:41 01/04/22 08:36 01/04/22 08:31 01/04/22 08:26 01/04/22 08:21 01/04/22 08:16 01/04/22 08:11 01/04/22 08:10 01/04/22 08:06 01/04/22 08:07 01/04/22 08:01 01/04/22 07:56 01/04/22 07:51 01/04/22 07:46 01/04/22 07:41 01/04/22 07:39 01/04/22 07:38 01/04/22 07:36 01/04/22 07:31 01/04/22 07:26 01/04/22 07:21 01/04/22 07:16 01/04/22 07:11 01/04/22 07:06 01/04/22 07:07 01/04/22 07:01 01/04/22 06:56 01/04/22 06:51 01/04/22 06:46 01/04/22 06:41 01/04/22 06:36 01/04/22 06:31 01/04/22 06:26 01/04/22 06:25 01/04/22 06:21 01/04/22 06:16 01/04/22 06:11 01/04/22 06:06 01/04/22 06:01 01/04/22 05:56 01/04/22 05:51 01/04/22 05:50 01/04/22 05:50 01/04/22 05:46 01/04/22 05:41 01/04/22 05:39 01/04/22 05:36 01/04/22 05:31 01/04/22 05:26 01/04/22 05:21 01/04/22 05:16 01/04/22 05:11 01/04/22 05:09 01/04/22 05:06 01/04/22 05:01 01/04/22 04:56 01/04/22 04:51 01/04/22 04:46 01/04/22 04:43 01/04/22 04:41 01/04/22 04:36 01/04/22 04:31 01/04/22 04:26 01/04/22 04:21 01/04/22 04:16 01/04/22 04:11 01/04/22 04:12 01/04/22 04:06 01/04/22 04:01 01/04/22 03:56 01/04/22 03:51 01/04/22 03:46 01/04/22 03:41 01/04/22 03:36 01/04/22 03:31 01/04/22 03:29 01/04/22 03:29 01/04/22 03:26 01/04/22 03:21 01/04/22 03:16 01/04/22 03:11 01/04/22 03:06 01/04/22 03:01 01/04/22 02:56 01/04/22 02:51 01/04/22 02:46 01/04/22 02:41 01/04/22 02:39 01/04/22 02:36 01/04/22 02:31 01/04/22 02:26 01/04/22 02:21 01/04/22 02:16 01/04/22 02:11 01/04/22 02:11 01/04/22 02:11 01/04/22 02:09 01/04/22 02:06 01/04/22 02:01 01/04/22 01:56 01/04/22 01:51 01/04/22 01:46 01/04/22 01:41 01/04/22 01:39 01/04/22 01:36 01/04/22 01:31 01/04/22 01:26 01/04/22 01:21 01/04/22 01:16 01/04/22 01:13 01/04/22 01:13 01/04/22 01:11 01/04/22 01:11 01/04/22 01:11 01/04/22 01:06 01/04/22 01:01 01/04/22 00:56 01/04/22 00:51 01/04/22 00:46 01/04/22 00:41 01/04/22 00:40 01/04/22 00:36 01/04/22 00:31 01/04/22 00:26 01/04/22 00:21 01/04/22 00:18 01/04/22 00:18 01/04/22 00:16 01/04/22 00:11 01/04/22 00:10 01/04/22 00:06 01/04/22 00:01 01/03/22 23:56 01/03/22 23:51 01/03/22 23:46 01/03/22 23:41 01/03/22 23:40 01/03/22 23:36 01/03/22 23:31 01/03/22 23:26 01/03/22 23:21 01/03/22 23:16 01/03/22 23:16 01/03/22 23:11 01/03/22 23:09 01/03/22 23:06 01/03/22 23:07 01/03/22 23:01 01/03/22 23:00 01/03/22 23:00 01/03/22 22:56 01/03/22 22:53 01/03/22 22:51 01/03/22 22:46 01/03/22 22:41 01/03/22 22:38 01/03/22 22:36 01/03/22 22:31 01/03/22 22:26 01/03/22 22:23 01/03/22 22:21 01/03/22 22:20 01/03/22 22:16 01/03/22 22:11 01/03/22 22:06 01/03/22 22:07 01/03/22 22:01 01/03/22 21:56 01/03/22 21:52 01/03/22 21:51 01/03/22 21:46 01/03/22 21:41 01/03/22 21:37 01/03/22 21:36 01/03/22 21:31 01/03/22 21:26 01/03/22 21:23 01/03/22 21:21 01/03/22 21:16 01/03/22 21:11 01/03/22 21:07 01/03/22 21:06 01/03/22 21:01 01/03/22 20:56 01/03/22 20:52 01/03/22 20:51 01/03/22 20:46 01/03/22 20:41 01/03/22 20:38 01/03/22 20:36 01/03/22 20:31 01/03/22 20:26 01/03/22 20:21 01/03/22 20:22 01/03/22 20:16 01/03/22 20:11 01/03/22 20:07 01/03/22 20:06 01/03/22 20:01 01/03/22 19:56 01/03/22 19:51 01/03/22 19:52 01/03/22 19:46 01/03/22 19:41 01/03/22 19:39 01/03/22 19:36 01/03/22 19:31 01/03/22 19:26 01/03/22 19:21 01/03/22 19:22 01/03/22 19:16 01/03/22 19:11 01/03/22 19:08 01/03/22 19:06 01/03/22 19:01 01/03/22 18:56 01/03/22 18:53 01/03/22 18:51 01/03/22 18:46 01/03/22 18:41 01/03/22 18:37 01/03/22 18:36 01/03/22 18:31 01/03/22 18:26 01/03/22 18:21 01/03/22 18:22 01/03/22 18:16 01/03/22 18:11 01/03/22 18:08 01/03/22 18:06 01/03/22 18:01 01/03/22 17:56 01/03/22 17:51 01/03/22 17:52 01/03/22 17:46 01/03/22 17:41 01/03/22 17:37 01/03/22 17:36 01/03/22 17:31 01/03/22 17:26 01/03/22 17:21 01/03/22 17:22 01/03/22 17:16 01/03/22 17:11 01/03/22 17:06 01/03/22 17:07 01/03/22 17:01 01/03/22 16:56 01/03/22 16:52 01/03/22 16:51 01/03/22 16:46 01/03/22 16:46 01/03/22 16:46 01/03/22 16:41 Pain Intensity Perineal: Pain Intensity: 7 Transfer of Care Handoff Completed per policy Notes Mental Status: alert / awake / arousable Nausea / Vomiting: adequately controlled Pain: adequately controlled Airway Patency, RR, SpO2: stable & adequate BP & HR: stable & adequate Hydration State: stable & adequate Neuraxial Anesthesia: was administered and sensory block is resolving Anesthetic Complications: no major complications apparent and Pt Satisfied with anesthetic care
[2022-01-04] MEDS ORDERED: OXYTOCIN 20 UNITS in LACTATED RINGER'S 1,000 ML IV SCH (19:00)
[2022-01-04] MEDS: DOCUSATE SODIUM 100 MG CAP PO SCH (20:47)
[2022-01-05] MEDS: KETOROLAC 30 MG/ML VIAL IV PRN ×2 (00:15→08:22)
[2022-01-05] MEDS: METHYLERGONOVINE MALEATE 0.2 MG TAB PO SCH ×2 (00:42→05:12)
[2022-01-05] MEDS: ceFAZolin 2000MG 2,000 MG/15 ML SYR IV SCH ×3 (05:12→20:52)
[2022-01-05] MEDS: CLINDAMYCIN/D5W 900 MG/50 ML BAG IV SCH ×3 (06:26→22:23)
[2022-01-05 06:32] LABS: Hematocrit (blood only) 29.9 % (34.1-44.9); Hemoglobin 10.1 g/dl (12.0-16.0); Mean Corpuscular Hemoglobin 28.9 pg (25.0-34.0); Mean Corpuscular Hgb Conc 33.8 g/dL (32.0-36.0); Mean Corpuscular Volume 85.7 fL (80.0-100.0); Platelet Count 238 K/uL (130-400); RDW Coefficient of Variation 13.1 % (11.5-14.5); RDW Standard Deviation 40.5 fL (36.4-46.3); Red Blood Count 3.49 M/uL (3.93-5.22); White Blood Count 9.91 K/ul (4.8-10.8)
[2022-01-05 06:49] LABS: Basophils # (auto) 0.03 K/uL (0-0.2); Basophils % (auto) 0.3 %; Eosinophils # (auto) 0.11 K/uL (0-0.50); Eosinophils % (auto) 1.1 %; Immature Granulocytes # (auto) 0.05 K/uL (0.00-0.02); Immature Granulocytes % (auto) 0.5 %; Lymphocytes # (auto) 1.31 K/uL (1.2-3.4); Lymphocytes % (auto) 13.2 %; Neutrophils # (auto) 7.91 K/uL (1.4-6.5); Neutrophils % (auto) 79.9 %
[2022-01-05] MEDS: FERROUS SULFATE 325 MG TAB PO SCH (08:25)
[2022-01-05] MEDS: SIMETHICONE 80 MG CHEW PO SCH ×4 (08:25→20:50)
[2022-01-05] MEDS: PRENATAL VITAMIN 1 TAB PO SCH (08:25)
[2022-01-05] MEDS: DOCUSATE SODIUM 100 MG CAP PO SCH ×2 (08:25→20:50)
--- NOTE | 2022-01-05 11:21 | Obstetrical Progress Note ---
Date of Service January 05, 2022 Assessment & Plan Admission and Anticipated Discharge Date Admission Date: January 02, 2022 Subjective Patient is seen and examined. She feels well, no complaints. Pain is under control. Has not been OOB yet, now her nurse is ready to ambulate her. Voiding without difficulty Tolerating regular diet with out N&V Flatus + BM neg Bleeding is minimal No fever/ chills/ CP/ SOB/ N&V/ Leg pain Breast feeding without problems Vital Signs Temp Pulse Resp BP BP Pulse Ox O2 Del Method 01/05/22 09:15 16 96 01/05/22 07:10 16 94 01/05/22 08:15 18 95 01/05/22 08:15 36.7 C 99 H 18 103/67 95 Room Air 01/05/22 06:00 17 96 01/05/22 05:00 17 94 01/05/22 04:00 16 96 01/05/22 03:00 18 97 01/05/22 02:00 16 97 01/05/22 03:45 96 H 94/58 L 01/05/22 03:34 36.4 C L 103 H 18 88/57 L 94 Room Air 01/05/22 01:11 16 96 01/05/22 01:00 37.4 C 01/05/22 00:00 16 97 Intake & Output 01/04/22 01/05/22 01/05/22 22:59 06:59 14:59 Intake Total 1893.267 / 3187.767 Output Total / 1974 300 / 1975 650 / 650 Balance 1443.267 / 1212.767 -300 / 1212.767 -650 / -650 Intake: IV 1423.267 / 1517.767 Clindamycin/D5w 900 mg In 50 ml 100 / 100 @ 100 mls/hr IV Q8H KIERRA Rx#: [id number] Lactated Ringer's 1,000 ml @ 1000 / 1000 150 mls/hr IV .[id number] PRN Rx#: [id number] Oxytocin 30 units In 500 ml @ 1 323.267 / 323.267 .8 UNITS/HR 30 mls/hr IV . [id number] PRN Rx#:[id number] Oral 470 / 470 Output: Urine Amount (Catheter) 450 / 1275 300 / 1275 650 / 650 Queen/Indwelling 450 / 1275 300 / 1275 650 / 650 PE: General: Alert, orientedx3, NAD CVS: S1S2 RRR Lungs; CTAB Abd: soft, NT, ND, BS+, fundus firm, below Umbilicus Incision/ Dressing: Clean, dry, intact Perineum intact, Lochia rubra minimal Ext; NT, 1+/1+ edema, Homans sign neg/ neg AP: 21 yo s/p C Section, pod# 1 VSS Afebrile doing well Continue routine postop care Encourage ambulation, PO intake All questions were answered Discussed contraception Plans to breast feed exclusively. Desires POP Results & Data ([facility]) Vital Signs (Past 12 Hours) Vital Signs Temp Pulse Resp BP BP Pulse Ox O2 Del Method 01/05/22 09:15 16 96 01/05/22 07:10 16 94 01/05/22 08:15 18 95 01/05/22 08:15 36.7 C 99 H 18 103/67 95 Room Air 01/05/22 06:00 17 96 01/05/22 05:00 17 94 01/05/22 04:00 16 96 01/05/22 03:00 18 97 01/05/22 02:00 16 97 01/05/22 03:45 96 H 94/58 L 01/05/22 03:34 36.4 C L 103 H 18 88/57 L 94 Room Air 01/05/22 01:11 16 96 01/05/22 01:00 37.4 C 01/05/22 00:00 16 97
[2022-01-05] MEDS: oxyCODONE/ACETAMINOPHEN 5mg/325mg TAB PO PRN ×3 (13:23→22:23)
[2022-01-05] MEDS: IBUPROFEN 600 MG TAB PO PRN ×3 (13:23→22:23)
[2022-01-05] MEDS ORDERED: bisacodyL 5 MG TABEC PO SCH (20:00)
[2022-01-06] MEDS: IBUPROFEN 600 MG TAB PO PRN ×3 (05:47→16:53)
[2022-01-06] MEDS: CLINDAMYCIN/D5W 900 MG/50 ML BAG IV SCH (05:48)
[2022-01-06] MEDS: oxyCODONE/ACETAMINOPHEN 5mg/325mg TAB PO PRN ×3 (05:48→16:53)
[2022-01-06 07:34] LABS: Hematocrit (blood only) 26.8 % (34.1-44.9); Hemoglobin 8.8 g/dl (12.0-16.0)
[2022-01-06] MEDS: DOCUSATE SODIUM 100 MG CAP PO SCH ×2 (08:27→20:26)
[2022-01-06] MEDS: FERROUS SULFATE 325 MG TAB PO SCH (08:27)
[2022-01-06] MEDS: PRENATAL VITAMIN 1 TAB PO SCH (08:27)
[2022-01-06] MEDS: SIMETHICONE 80 MG CHEW PO SCH ×4 (08:28→20:26)
--- NOTE | 2022-01-06 09:29 | Obstetrical Progress Note ---
Date of Service January 06, 2022 Assessment & Plan Admission and Anticipated Discharge Date Admission Date: January 02, 2022 Subjective Patient is seen and examined. She feels well, no complaints. Pain is under control with oral meds. Ambulating without dizziness. Voiding without difficulty Tolerating regular diet with out N&V Flatus neg BM neg Bleeding is minimal No fever/ chills/ CP/ SOB/ N&V/ Leg pain Breast feeding without problems Vital Signs Temp Pulse Resp BP BP Pulse Ox O2 Del Method 01/06/22 08:00 37.0 C 99 H 16 118/67 97 Room Air 01/06/22 04:00 36.7 C 89 16 106/63 Room Air 01/05/22 23:00 36.5 C 90 16 97/59 L Room Air 01/05/22 20:00 36.6 C 94 H 16 97/59 L Room Air 01/05/22 13:30 36.4 C L 94 H 16 93/53 L 96 Room Air Intake and Output 01/05/22 01/06/22 01/06/22 22:59 06:59 14:59 Intake Total 829.167 / 929.167 50 / 929.167 Balance 829.167 / 129.167 50 / 129.167 Intake: IV 829.167 / 929.167 50 / 929.167 Clindamycin/D5w 900 mg In 50 ml 50 / 100 @ 100 mls/hr IV Q8H KIERRA Rx#: [id number] Lactated Ringer's 1,000 ml @ 829.167 / 829.167 125 mls/hr IV .Q8H KIERRA Rx#: [id number] Lab Results 01/02/22 01/02/22 01/04/22 Range/Units 08:48 09:52 08:53 WBC 6.16 (4.8-10.8) K/ul RBC 3.91 L (3.93-5.22) M/uL Hgb 11.2 L (12.0-16.0) g/dl Hct 34.3 (34.1-44.9) % MCV 87.7 (80.0-100.0) fL MCH 28.6 (25.0-34.0) pg MCHC 32.7 (32.0-36.0) g/dL RDW Std Deviation 40.7 (36.4-46.3) fL RDW Coeff of Sivakumar 12.8 (11.5-14.5) % Plt Count 305 (130-400) K/uL MPV 10.2 (9.4-12.3) fL Immature Gran % (Auto) % Neut % (Auto) % Lymph % (Auto) % [place] % (Auto) % Eos % (Auto) % Baso % (Auto) % Neut # (Auto) (1.4-6.5) K/uL Lymph # (Auto) (1.2-3.4) K/uL [place] # (Auto) (0.24-0.82) K/uL Eos # (Auto) (0-0.50) K/uL Baso # (Auto) (0-0.2) K/uL Immature Gran # (Auto) (0.00-0.02) K/uL Sodium (136-145) mmol/L Potassium (3.5-5.1) mmol/L Chloride (98-107) mmol/L Carbon Dioxide (21-32) mmol/L Anion Gap (3-11) BUN (6-23) mg/dl Creatinine (0.6-1.2) mg/dl Est Cr Clr Drug Dosing ml/min Est GFR ( Amer) ml/min Est GFR (Non-Af Amer) ml/min BUN/Creatinine Ratio (10-20) Glucose (70-99(Fasting)) mg/dl Calcium (8.5-10.1) mg/dl Total Bilirubin (0.2-1.0) mg/dl AST (13-39) U/L ALT (7-52) U/L Alkaline Phosphatase (34-104) U/L Total Protein (6.0-8.3) gm/dl Albumin (3.4-5.0) gm/dl Globulin (2.5-4.0) gm/dl Albumin/Globulin Ratio (0.9-2) SARS-CoV-2, RNA, NAAT NEGATIVE (NEGATIVE) Blood Type O Positive Antibody Screen NEGATIVE 01/04/22 01/04/22 01/05/22 Range/Units 08:53 08:53 06:11 WBC 14.51 H 9.91 (4.8-10.8) K/ul RBC 3.96 3.49 L (3.93-5.22) M/uL Hgb 11.4 L 10.1 L (12.0-16.0) g/dl Hct 33.6 L 29.9 L (34.1-44.9) % MCV 84.8 85.7 (80.0-100.0) fL MCH 28.8 28.9 (25.0-34.0) pg MCHC 33.9 33.8 (32.0-36.0) g/dL RDW Std Deviation 40.3 40.5 (36.4-46.3) fL RDW Coeff of Sivakumar 13.0 13.1 (11.5-14.5) % Plt Count 298 238 (130-400) K/uL MPV 10.0 10.0 (9.4-12.3) fL Immature Gran % (Auto) 0.6 0.5 % Neut % (Auto) 86.1 79.9 % Lymph % (Auto) 6.6 13.2 % [place] % (Auto) 6.5 5.0 % Eos % (Auto) 0.0 1.1 % Baso % (Auto) 0.2 0.3 % Neut # (Auto) 12.49 H 7.91 H (1.4-6.5) K/uL Lymph # (Auto) 0.96 L 1.31 (1.2-3.4) K/uL [place] # (Auto) 0.94 H 0.50 (0.24-0.82) K/uL Eos # (Auto) 0.00 0.11 (0-0.50) K/uL Baso # (Auto) 0.03 0.03 (0-0.2) K/uL Immature Gran # (Auto) 0.09 H 0.05 H (0.00-0.02) K/uL Sodium 135 L (136-145) mmol/L Potassium 3.9 (3.5-5.1) mmol/L Chloride 104 (98-107) mmol/L Carbon Dioxide 17 L (21-32) mmol/L Anion Gap 14 H (3-11) BUN 9 (6-23) mg/dl Creatinine 0.83 (0.6-1.2) mg/dl Est Cr Clr Drug Dosing 112.2 ml/min Est GFR ( Amer) 118.5 ml/min Est GFR (Non-Af Amer) 102.2 ml/min BUN/Creatinine Ratio 10.8 (10-20) Glucose 84 (70-99(Fasting)) mg/dl Calcium 8.9 (8.5-10.1) mg/dl Total Bilirubin 1.5 H (0.2-1.0) mg/dl AST 18 (13-39) U/L ALT 10 (7-52) U/L Alkaline Phosphatase 204 H (34-104) U/L Total Protein 5.8 L (6.0-8.3) gm/dl Albumin 3.0 L (3.4-5.0) gm/dl Globulin 2.8 (2.5-4.0) gm/dl Albumin/Globulin Ratio 1.1 (0.9-2) SARS-CoV-2, RNA, NAAT (NEGATIVE) Blood Type Antibody Screen 01/06/22 Range/Units 06:48 WBC (4.8-10.8) K/ul RBC (3.93-5.22) M/uL Hgb 8.8 L (12.0-16.0) g/dl Hct 26.8 L (34.1-44.9) % MCV (80.0-100.0) fL MCH (25.0-34.0) pg MCHC (32.0-36.0) g/dL RDW Std Deviation (36.4-46.3) fL RDW Coeff of Sivakumar (11.5-14.5) % Plt Count (130-400) K/uL MPV (9.4-12.3) fL Immature Gran % (Auto) % Neut % (Auto) % Lymph % (Auto) % [place] % (Auto) % Eos % (Auto) % Baso % (Auto) % Neut # (Auto) (1.4-6.5) K/uL Lymph # (Auto) (1.2-3.4) K/uL [place] # (Auto) (0.24-0.82) K/uL Eos # (Auto) (0-0.50) K/uL Baso # (Auto) (0-0.2) K/uL Immature Gran # (Auto) (0.00-0.02) K/uL Sodium (136-145) mmol/L Potassium (3.5-5.1) mmol/L Chloride (98-107) mmol/L Carbon Dioxide (21-32) mmol/L Anion Gap (3-11) BUN (6-23) mg/dl Creatinine (0.6-1.2) mg/dl Est Cr Clr Drug Dosing ml/min Est GFR ( Amer) ml/min Est GFR (Non-Af Amer) ml/min BUN/Creatinine Ratio (10-20) Glucose (70-99(Fasting)) mg/dl Calcium (8.5-10.1) mg/dl Total Bilirubin (0.2-1.0) mg/dl AST (13-39) U/L ALT (7-52) U/L Alkaline Phosphatase (34-104) U/L Total Protein (6.0-8.3) gm/dl Albumin (3.4-5.0) gm/dl Globulin (2.5-4.0) gm/dl Albumin/Globulin Ratio (0.9-2) SARS-CoV-2, RNA, NAAT (NEGATIVE) Blood Type Antibody Screen PE: General: Alert, orientedx3, NAD CVS: S1S2 RRR Lungs; CTAB Abd: soft, NT, ND, BS+, fundus firm, below Umbilicus Incision: Clean, dry, intact Perineum intact, Lochia rubra minimal Ext; NT, no edema AP: 21 yo s/p C Section, pod# 2 VSS Afebrile doing well Continue routine postop care Encourage ambulation, PO intake Await for flatus All questions were answered D/C home tomorrow Results & Data ([facility]) Vital Signs (Past 12 Hours) Vital Signs Temp Pulse Resp BP BP Pulse Ox O2 Del Method 01/06/22 08:00 37.0 C 99 H 16 118/67 97 Room Air 01/06/22 04:00 36.7 C 89 16 106/63 Room Air 01/05/22 23:00 36.5 C 90 16 97/59 L Room Air
[2022-01-06] MEDS ORDERED: bisacodyL 10 MG SUPP PR PRN (10:36)
[2022-01-07] MEDS: oxyCODONE/ACETAMINOPHEN 5mg/325mg TAB PO PRN ×2 (00:43→08:49)
[2022-01-07] MEDS: IBUPROFEN 600 MG TAB PO PRN ×2 (00:43→08:49)
[2022-01-07] MEDS: PRENATAL VITAMIN 1 TAB PO SCH (08:42)
[2022-01-07] MEDS: DOCUSATE SODIUM 100 MG CAP PO SCH (08:42)
[2022-01-07] MEDS: SIMETHICONE 80 MG CHEW PO SCH (08:42)
[2022-01-07] MEDS: FERROUS SULFATE 325 MG TAB PO SCH (08:42)
== END 2022-01-07 13:30 | disposition home or self-care (01) | DRG 788 ==
LOC: 4S1 08:20 → 4E2 01-04 14:41